=== PATIENT | male | born 1945 | race Two or more races ===

== ENCOUNTER 2016-03-15 21:32 | Inpatient (IN) | payer MEDICARE ==
[~2016-03-15] VITALS: Ht 160 cm; Wt 76.7 kg
[~2016-03-15 21:32] MED LIST: ASPIRIN-LOW81 MG ORAL; BLOOD PRESSURE PILL ORAL; CHOLESTEROL PILL ORAL; CLOTRIMAZOLE30 GM TP; FLOMAX0.4 MG ORAL; JANUMET 50-5001 EACH ORAL; LOSARTAN POTAS100 MG ORAL; METFORMIN HCL500 M1 ORAL; TRIAMTERENE-HC1 EAC6 ORAL
[2016-03-16] MEDS ORDERED: DONEPEZIL HCL5 MG (03:09)
[2016-03-16] MEDS ORDERED: DONEPEZIL HCL10 MG (03:09)
[2016-03-16] MEDS ORDERED: ALLOPURINOL100 M1 (03:09)
[2016-03-16] MEDS ORDERED: LYRICA50 MG (03:09)
[2016-03-16] MEDS ORDERED: BENAZEPRIL HCL10 MG (03:09)
[2016-03-16] MEDS ORDERED: SIMVASTATIN20 MG (03:09)
[2016-03-16] MEDS ORDERED: LABETALOL HCL100 MG (03:09)
[2016-03-16] MEDS ORDERED: JANUMET 50-5001 EACH (03:09)
[2016-03-16] MEDS ORDERED: NEXIUM40 MG (03:09)
[2016-03-16] MEDS: NovoLOG Insulin Flexpen SUBQ SCH ×2 (06:30→11:23)
[2016-03-16] MEDS ORDERED: metFORMIN 500mg tab ORAL SCH (09:00)
--- NOTE | 2016-03-16 12:06 | History and Physical ---
History of Present Illness General Date patient seen: Mar 16, 2016 Present Illness HPI 70 year old male with hx of HTN, was found unconscious in a Sauna, somebody performed CPR on him. On arrival of paramedics he was awake. He was taken to [facility], where he was initially evaluated and was found to be slightly dehydrated. He was transferred to [facility] for further evaluation. Currently he is asymptomatic and wants to leave hospital. Allergies: Coded Allergies: No Known Allergies (Verified Allergy, Unknown, 12/24/09) Medication History Scheduled Aspirin (Aspirin EC), 81 MG ORAL DAILY, (Reported) Clotrimazole (Clotrimazole), 30 GM TP PRN, (Reported) Losartan Potassium (Losartan Potassium), 100 MG ORAL DAILY, (Reported) Metformin Hcl* (Metformin Hcl*), 500 MG ORAL DAILY, (Reported) Tamsulosin HCl (Flomax), 0.4 MG ORAL DAILY, (Reported) Triamterene/Hydrochlorothiazid (Triamterene-Hctz 75-50 Mg Tab), 1 TAB ORAL DAILY , (Reported) Miscellaneous Medications Allopurinol* (Allopurinol*), (Reported) Benazepril Hcl* (Benazepril Hcl*), (Reported) Donepezil Hcl* (Donepezil Hcl*), (Reported) Donepezil Hcl* (Donepezil Hcl*), (Reported) Esomeprazole Magnesium (Nexium), (Reported) Labetalol Hcl* (Normodyne*), (Reported) Pregabalin (Lyrica), (Reported) Simvastatin (Zocor), (Reported) Sitagliptin Phos/Metformin Hcl (Janumet 50-500 Mg Tablet), (Reported) Patient History Healthcare decision maker Resuscitation status Full Code Advanced Directive on File Past Medical/Surgical History Past Medical/Surgical History: (1) Gastrointestinal stromal tumor (GIST) Review of Systems Constitutional: Reports: weakness Eye: Reports: no symptoms ENT: Reports: no symptoms Respiratory: Reports: no symptoms Cardiovascular: Reports: no symptoms Physical Exam Lines, tubes and drains: peripheral, PICC HEENT: normocephalic, atraumatic Neck: non-tender, normal alignment Respiratory/Chest: chest wall non-tender, lungs clear Breasts: no masses Cardiovascular/Chest: normal peripheral pulses Extremities: normal range of motion, non-tender Neurologic: family engagement specialist II-XII grossly normal Lymphatic: anterior cervical Last 24 Hour Vital Signs Date Time Temp Pulse Resp B/P Pulse Ox O2 Delivery O2 Flow Rate FiO2 03/16/16 09:01 64 70 71 03/16/16 04:08 63 73 92 03/16/16 04:00 61 03/16/16 01:05 63 73 92 Intake and Output 03/15/16 03/16/16 19:00 07:00 Intake Total 150 ml Output Total 500 ml Balance -350 ml Intake IV Total 150 ml Output Urine Total 500 ml # Voids 1 Height (Feet): 5 Height (Inches): 3.00 Weight (Pounds): 169 Medications Current Medications Medications (Trade) Dose Ordered Sig/Eden Route PRN Reason Start Time Stop Time Status Last Admin Dose Admin Dextrose (Dextrose 50%) STAT PRN IV Hypoglycemia 03/16/16 02:30 04/15/16 02:29 Insulin Aspart (NovoLOG) BEFORE MEALS AND HS SUBQ 03/16/16 06:30 04/15/16 06:29 Irbesartan (Avapro) 80 mg DAILY ORAL 03/16/16 09:00 04/15/16 08:59 Future Hold Metformin HCl (Glucophage) 500 mg BID ORAL 03/16/16 09:00 04/15/16 08:59 03/16/16 09:09 Sodium Chloride (Sodium Chloride 1000ml bag) 1,000 ml @ 75 mls/hr [id number] IVLG 03/16/16 03:26 04/15/16 03:25 03/16/16 04:57 Tamsulosin HCl (Flomax) 0.4 mg BEDTIME ORAL 03/16/16 21:00 04/15/16 20:59 Assessment/Plan Problem List: (1) Cardiopulmonary arrest ICD Codes: I46.9 - Cardiac arrest, cause unspecified SNOMED: 865669131 (2) Acute encephalopathy ICD Codes: G93.40 - Encephalopathy, unspecified SNOMED: 1403440 (3) Cerebrovascular accident, old ICD Codes: Z86.73 - Personal history of transient ischemic attack (TIA), and cerebral infarction without residual deficits SNOMED: 002578198 Assessment/Plan echo cardiac monitoring serial ekg, troponin neurolgy to see. JO ANN VILLASEÑOR Mar 16, 2016 12:06
[2016-03-16 13:01] LABS: BASOPHILS % (AUTO) 1.1 % (0.0-2.0); EOSINOPHILS % (AUTO) 1.3 % (0.0-3.0); LYMPHOCYTES % (AUTO) 41.8 % (20.0-45.0); MEAN CORPUSCULAR HEMOGLOBIN 31.6 PG (27.0-31.0); MEAN CORPUSCULAR HGB CONC 33.6 G/DL (32.0-36.0); MEAN CORPUSCULAR VOLUME 94 FL (80-99); MEAN PLATELET VOLUME 6.8 FL (6.5-10.1); MONOCYTES % (AUTO) 12.6 % (1.0-10.0); NEUTROPHILS % (AUTO) 43.3 % (45.0-75.0); PLATELET COUNT 103 K/UL (150-450); RED BLOOD COUNT 4.72 M/UL (4.70-6.10); RED CELL DISTRIBUTION WIDTH 10.6 % (11.6-14.8); WHITE BLOOD COUNT 3.6 K/UL (4.8-10.8)
[2016-03-16 13:24] LABS: TROPONIN I < 0.30 ng/mL (<=0.30)
[2016-03-16 13:28] LABS: ALANINE AMINOTRANSFERASE 35 U/L (3-41); ALBUMIN/GLOBULIN RATIO 1.5 (1.0-2.7); ANION GAP 13 (5-15); ASPARTATE AMINO TRANSFERASE 40 U/L (5-40); CALCIUM 8.8 mg/dL (8.6-10.2); CARBON DIOXIDE 27 mEQ/L (20-30); CHLORIDE 97 mEQ/L (98-107); HEMOLYSIS 4; SODIUM 137 mEQ/L (135-145); TOTAL PROTEIN 6.8 g/dL (6.6-8.7)
[2016-03-16] MEDS ORDERED: Tylenol #3 tab (300mg/30mg) ORAL PRN (14:00)
--- NOTE | 2016-03-16 14:07 | Neurology Progress Note ---
Objective Physical Exam Last Vital Signs Date Time Temp Pulse Resp B/P Pulse Ox O2 Delivery O2 Flow Rate FiO2 03/16/16 12:00 60 Laboratory Tests Test 03/16/16 12:35 White Blood Count 3.6 K/UL (4.8-10.8) L Red Blood Count 4.72 M/UL (4.70-6.10) Hemoglobin 14.9 G/DL (14.2-18.0) Hematocrit 44.4 % (42.0-52.0) Mean Corpuscular Volume 94 FL (80-99) Mean Corpuscular Hemoglobin 31.6 PG (27.0-31.0) H Mean Corpuscular Hemoglobin Concent 33.6 G/DL (32.0-36.0) Red Cell Distribution Width 10.6 % (11.6-14.8) L Platelet Count 103 K/UL (150-450) L Mean Platelet Volume 6.8 FL (6.5-10.1) Neutrophils (%) (Auto) 43.3 % (45.0-75.0) L Lymphocytes (%) (Auto) 41.8 % (20.0-45.0) Monocytes (%) (Auto) 12.6 % (1.0-10.0) H Eosinophils (%) (Auto) 1.3 % (0.0-3.0) Basophils (%) (Auto) 1.1 % (0.0-2.0) Sodium Level 137 mEQ/L (135-145) Potassium Level 4.0 mEQ/L (3.4-4.9) Chloride Level 97 mEQ/L (98-107) L Carbon Dioxide Level 27 mEQ/L (20-30) Anion Gap 13 (5-15) Blood Urea Nitrogen 7 mg/dL (7-23) Creatinine 1.0 mg/dL (0.7-1.2) Estimat Glomerular Filtration Rate mL/min (>60) Glucose Level 105 mg/dL (74-106) Calcium Level 8.8 mg/dL (8.6-10.2) Total Bilirubin 0.5 mg/dL (0.0-1.2) Aspartate Amino Transf (AST/SGOT) 40 U/L (5-40) Alanine Aminotransferase (ALT/SGPT) 35 U/L (3-41) Alkaline Phosphatase 70 U/L (40-129) Troponin I < 0.30 ng/mL (<=0.30) Total Protein 6.8 g/dL (6.6-8.7) Albumin 4.1 g/dL (3.5-5.2) Globulin 2.7 g/dL Albumin/Globulin Ratio 1.5 (1.0-2.7) Impression/Recommendations Recommendations #[id number] DIXIE ARCOS Mar 16, 2016 14:07
[2016-03-16] MEDS ORDERED: Neosporin Oint Ud Pkt TOPIC ONE (14:30)
--- NOTE | 2016-03-16 15:02 | History & Physical ---
History and Physical History & Physicial Jv Agarwal MD Mar 16, 2016 15:02
--- NOTE | 2016-03-16 15:31 | Cardiology Report ---
APPROVED REPORT EKG Measurement Heart [id number] Normal sinus rhythm Right bundle branch block Abnormal ECG
[2016-03-16] MEDS ORDERED: Tamsulosin 0.4mg cap ORAL SCH (21:00)
--- NOTE | 2016-03-16 21:47 | Consultation ---
DATE OF CONSULTATION: 03/16/2016 NEUROLOGICAL CONSULTATION CONSULTING PHYSICIAN: Clif Teran M.D. REQUESTING PHYSICIAN: Jv Agarwal M.D. HISTORY OF PRESENT ILLNESS: The patient is a 70-year-old gentleman seen in neurological consultation to evaluate the transient loss of consciousness. According to the patient as well as from medical records known that yesterday, he was doing fairly well although he had some signs of upper respiratory infection, coughing, and sneezing. He went to the sauna at a local [facility]. The patient indicated that he probably got "asleep" and actually become unresponsive estimated for about one hour long when someone saw him in the sauna unresponsive. He had five minutes of CPR. CPR paramedics were called to the scene at which point, he will be getting awaked. The patient was taken to [facility] emergency room, somewhat dehydrated, with his vital signs stable. He complained that he is feeling like he is getting sick with coughing, malaise, and upper respiratory infection since morning. He complained of pain in the left knee and left elbow. There was a superficial second-degree burn on the left olecranon and abrasions on the back and his chest. He was fully oriented. Stat CT of the brain was obtained. This revealed old lacunar infarct in the right basal ganglia, no acute abnormalities, no swelling, and no hemorrhage. CT of the cervical spine, degenerative joint disease and no dislocation. Chest x-ray, no acute disease. Blood work with low platelets of 108,000, sodium down to 131, but normal troponin, normal CPK and liver function. The patient stabilized and was brought to this hospital for further assessment and treatment. Laboratory work was repeated with CBC studies revealing WBC down to 3.6 and platelets 103,000. Chemistry panel was unremarkable. Following admission to present, the patient presented with multiple complaints and Neurology consult was requested. The patient is now indicating persistent severe pains in his anterior and lateral aspect of the chest and area of a scratch. There is also pain in his upper back, pain increasing with any cough or strain, and persistent pain in his left upper extremity, lower back region, and upper back pain. PAST MEDICAL HISTORY: History of gout arthritis, hypertension, diabetes type 2, benign prostatic hypertrophy, and status post lumbar laminectomies. MEDICATIONS: Treatment prior to admission included allopurinol, aspirin, benazepril, donepezil, labetalol, losartan, metformin, Lyrica, simvastatin, Janumet, Flomax, and triamterene. ALLERGIES: None reported. SOCIAL HISTORY: Denies alcohol or drug abuse. Nonsmoker. FAMILY HISTORY: Noncontributory. REVIEW OF SYMPTOMS: Denies headache ot dizziness, but has persistent pain and discomfort in his chest, upper back, dorsal spine, and left arm. The patient indicated that the longer he is in the hospital, worse he feels. No urine or bowel incontinence. PHYSICAL EXAMINATION: GENERAL: A well-developed, well-nourished man, not in acute distress, found to be lying in bed, watching TV. VITAL SIGNS: Now stable. Blood pressure 105/86 and respiration 18. HEENT: Head, normocephalic. No evidence of trauma. Eyes, ears, and throat are clear. NECK: Supple. CHEST: There is an acute palpable tenderness in the sternal and right chest area. SKIN: Scratched area noted. There is a small burn lesion in the left elbow, olecranon area. There is redness and significant tenderness on palpation in the left periscapular region. No deformities. MUSCULOSKELETAL: Peripheral pulses, 1+ symmetric. MENTAL STATUS: Alert and oriented x3. Speech is fluent. Language is intact. The patient is anxious, tensed, and asking to be discharged home. CRANIAL NERVE II: Pupils both responding to light and accommodation. Extraocular movement intact. No nystagmus. CRANIAL NERVE V: Normal corneal responses. CRANIAL NERVE VII: No facial asymmetry. CRANIAL NERVE VIII: Normal hearing. CRANIAL NERVES IX THROUGH XII: Tongue is in midline. Symmetric palate elevation. MOTOR EXAMINATION: Motor examination, normal muscle tone. Strength 5/5 in all extremities. No involuntary movement. Deep tendon reflexes, 1+ symmetric with downgoing toes on both sides. SENSORY EXAM: Normal in all modalities. GAIT: Not tested, but able to ambulate slowly due to low back pain. IMPRESSION: 1. History of syncopal episode, most likely vasovagal secondary to dehydration in an overheated sauna. 2. Generalized myalgia secondary to transient hyperthermia. 3. Chronic low back pain, status post laminectomy. 4. Hypertension. 5. Hyperlipidemia. 6. Diabetes type 2. RECOMMENDATIONS: 1. Cold packs to the painful areas. 2. Tylenol 650 mg t.i.d. for pain management. 3. Avoid strenuous physical exertion. 4. Bedrest. 5. Rehydration. 6. Recheck orthostatic blood pressure. Thank you for allowing me to see this interesting patient in neurological consultation. Clif Astrid Teran DR: CHEMA JOB#: [id number] CC:
--- NOTE | 2016-03-16 22:27 | History and Physical Report ---
DATE OF ADMISSION: 03/16/2016 CHIEF COMPLAINT: Syncopal episode. HISTORY OF PRESENT ILLNESS: This is a 70-year-old Pakistani gentleman with past medical history significant for hypertension, dyslipidemia, history of spine surgery in the past lumbar spine, history of gout, and diabetes type 2 who presented to the hospital initially at [facility] after had a syncopal episode. While he was was found down for 20 to 30 minute and somebody at the senior started performing CPR. About 5 minute of CPR although patient was responsive per EMS the patient reported that he has been having URI, cough, and malaise since that morning and feel like he is getting sick. He does not recall the events and denies any associated palpitation, chest pain, shortness of breath, or fever. Shortly after initial evaluation in [facility], the patient was noted to have severe profound weakness and subsequently the patient was transferred to [facility] for further evaluation and workup including cardiac workup . PAST MEDICAL HISTORY AND PAST SURGICAL HISTORY: As above history of hypertension, gout, diabetes type 2, dyslipidemia, lumbar spine surgery. MEDICATIONS: At home significant for metformin, Flomax, allopurinol, aspirin, benazepril, clotrimazole, Aricept, Nexium, labetalol, losartan, Lyrica, Zocor, Janumet, triamterene-hydrochlorothiazide. ALLERGIES: No known drug allergies. SOCIAL HISTORY: No smoking, alcohol, or drugs at this time. FAMILY HISTORY: Noncontributory. REVIEW OF SYSTEMS: Mostly as above. Denies any dysuria, frequency, hematuria. He said that he is not feeling good. Denies any hemoptysis or hematochezia. Complained about cough and fatigue. Denies any double vision. Denies any suicidal or homicidal ideation. Denies any loss of consciousness before this event. PHYSICAL EXAMINATION: VITAL SIGNS: On arrival to [facility] significant for temperature 99.2, pulse of 79, respirations 19, blood pressure 138/75, repeat one is 141/87. GENERAL: The patient awake, responsive, no acute distress. HEENT: Head And Neck: Pupils are reactive to light. Extraocular movements are intact. NECK: Supple. No JVD. LUNGS: Good air entry. No wheezes or rales. HEART: S1 and S2. Regular rhythm. No murmurs or gallops. ABDOMEN: Soft, nondistended, and nontender. Positive bowel sounds. RECTAL: Refused and deferred. GENITOURINARY: Refused and deferred. EXTREMITIES: No cyanosis, clubbing, or edema. NEUROLOGIC: Cranial nerves II through XII are grossly intact. Moves all four extremities. Gait is unsteady and mild loss of balance; however, he is still using the wall for ambulation. SKIN: Second-degree burn in the chest wall as well as back was noted. LABORATORY AND DIAGNOSTIC DATA,: From [facility], CT of the cervical spine, no contrast, there is no fracture, degenerative changes are seen including interventricular disk space. The patient had a CT of the brain which shows that old lacunar infarction are seen in the right thalamic as well as right putamen. There is no intracranial bleed or acute infarction. Laboratory, noted the patient has WBC of 4.7, hemoglobin of 15 with a hematocrit of 44, and platelet 108,000. Sodium 131, potassium 4.2, chloride 97, bicarbonate 27, BUN is 8, creatinine is 1.09. INR is 1.0. Glucose 143. BNP of 22. CK of 264. Lipase is 29. Calcium is 9.3. EKG sinus with wide complex QRS, right bundle-branch block, no ischemia was noted. Chest x-ray, no infiltrate, as per the ER and the patient was noted to have lymph node percentage of 0.71. ASSESSMENT: 1. Syncope possible orthostatics versus cardiac arrhythmia. 2. Dehydration. 3. Diabetes type 2. 4. Dyslipidemia. 5. History of gout. 6. History of hypertension. PLAN: Admit the patient to telemetry. We will follow up with Dr. Rodriguez from Critical Care and Dr. Clif Teran from Neurology and Dr. Swapnil Zamorano from Cardiology. The patient had echocardiogram ordered and was done but the result is still pending and at this time his Accu-Chek was refusing to stay in the hospital. I explained to the patient the risk and benefit of staying in the hospital at least one more day for further evaluation and monitoring closely and IV hydration. He adamantly refused. As his mental status cable of making judgments and he knows what he is doing according to him and discussed with the patient that there is the possibility of further falling such as striking the head and intracranial bleed or possible and he understood that and he said that I will take my risk. He is signing AMA against medical advice from hospital. Jv Agarwal M.D. DR: Grace JOB#: [id number] CC:
--- NOTE | 2016-03-17 10:03 | Cardiology Report ---
APPROVED REPORT EXAM: Two-dimensional and M-mode echocardiogram with Doppler and color Doppler. INDICATION Syncope M-Mode DIMENSIONS IVSd1.1 (0.7-1.1cm)Left Atrium (MM)4.0 (1.6-4.0cm) LVDd3.1 (3.5-5.6cm)Aortic Root3.0 (2.0-3.7cm) PWd1.3 (0.7-1.1cm)Aortic Cusp Exc.1.7 (1.5-2.0cm) LVDs1.7 (2.5-4.0cm) PWs1.6 cm Normal left ventricular chamber size, systolic function and wall motion. Left ventricular ejection fraction estimated to be 65-70%. No evidence of ventricular hypertrophy. Anterior Echo-free space, may be due to pericardial fat or effusion. No evidence of pericardial effusion. All other cardiac chamber sizes are within normal limits. Mild focal aortic valve sclerosis with adequate cusp excursion. Mildly thickened mitral valve leaflets with normal excursion. Mild mitral annulus and aortic root calcification. Pulmonic valve not well visualized. Normal tricuspid valve structure. IVC dilated at 1.9cm with physiologic collapse. A color flow and spectral Doppler study was performed and revealed: Trace aortic regurgitation. Trace mitral regurgitation. Mitral diastolic velocities suggest reduced left ventricular relaxation (Grade I). Trace tricuspid regurgitation. Tricuspid systolic velocities suggests peak right ventricular systolic pressure of 15 mmHg. No pulmonic regurgitation present.
--- NOTE | 2016-03-17 15:13 | Discharge Summary ---
Discharge Summary Hospital Course Date of Admission Mar 16, 2016 at 00:39 Date of Discharge Mar 16, 2016 at 15:30 Admitting Diagnosis HPI Slick Cardenas is a 70 year old male who was admitted on Mar 16, 2016 at 00: 39 for Syncope Hospital Course [id number] Discharge Discharge Disposition Patient left AMA Discharge Diagnoses: Norah Brooks NP Mar 17, 2016 15:13
--- NOTE | 2016-03-18 02:58 | Discharge Summary 2 SIG ---
DATE OF ADMISSION: 03/16/2016 DATE OF DISCHARGE: 03/16/2016 CONSULTANTS: 1. Buster Rodriguez M.D. 2. Clif Teran M.D. BRIEF HOSPITAL COURSE: The patient is a 70-year-old male with past medical history of hypertension, dyslipidemia, history of lumbar spine surgery in the past, history of gout, and diabetes. He presented to the hospital initially at [facility] after syncopal episode. He was found down on the floor and somebody at the [facility] started performing CPR. Paramedics came. The patient was responsive per EMS report and the patient claims that he has been having upper respiratory symptoms with cough since the morning and felt like he was getting sick. He does not recall the events. He denies any associated palpitations, chest pain, shortness of breath, or fever. The patient was transferred to [facility] for further evaluation and cardiac workup. A CT of the cervical spine with no contrast showed no fracture or degenerative changes seen. He also had a CT of the brain that showed old lacunar infarct in the right thalamus as well as Chest x-ray showed no infiltrate. EKG showed wide complex QRS, and right bundle-branch block. No ischemia was noted. He was admitted to telemetry and was started on IV hydration. He was seen by Dr. Teran and Dr. Rodriguez. However, full treatment was not carried out as the patient signed out against medical advice. FINAL DIAGNOSES: 1. Syncope, possible orthostatic with cardiac arrhythmia. 2. Dehydration. 3. Diabetes mellitus type 2. 4. Dyslipidemia. 5. Gout. 6. Hypertension. 7. Chronic low back pain, status post laminectomy. 8. Hyperlipidemia. 9. Generalized myalgia secondary to transient hyperthermia. 10. Old cerebrovascular accident. 11. Noncompliance as the patient signed out against medical advice. Jv Agarwal M.D. I have been assigned to dictate discharge summary on this account and I was not involved in the patient's management. Norah Brooks N.P. DR: ARTUR JOB#: [id number] CC: KARINA
== END 2016-03-16 15:30 | disposition left against medical advice (07) | DRG 640 ==
LOC: 2E 03-16 00:39
DX: E86.0 Dehydration (principal); G93.40 Encephalopathy, unspecified; E11.9 Type 2 diabetes mellitus without complications; R50.9 Fever, unspecified; I10 Essential (primary) hypertension; Z86.73 Personal history of transient ischemic attack (TIA), and cerebral infarction without residual deficits; N40.0 Benign prostatic hyperplasia without lower urinary tract symptoms; E78.5 Hyperlipidemia, unspecified; M10.9 Gout, unspecified; Z91.19 Patient's noncompliance with other medical treatment and regimen
CPT/HCPCS: 36415; 80053; 82962; 84484; 85025; 93005; 93306; J1815

== ENCOUNTER 2017-04-23 14:38 | Outpatient (CLI) | payer MEDICARE, OTHER ==
[~2017-04-23 14:38] MED LIST changes: +ALLOPURINOL100 M1; +BENAZEPRIL HCL10 MG; +DONEPEZIL HCL10 MG; +DONEPEZIL HCL5 MG; +JANUMET 50-5001 EACH; +LABETALOL HCL100 MG; +LYRICA50 MG; +NEXIUM40 MG; +SIMVASTATIN20 MG
--- NOTE | 2017-04-23 15:33 | GI Progress Note ---
Assessment/Plan Problems: (1) Gastrointestinal stromal tumor (GIST) ICD Codes: D48.1 - Gastrointestinal stromal tumor (GIST) SNOMED: 880661516 (2) Submucosal lesion in duodenum (3) Antral erosion ICD Codes: K25.9 - Antral erosion SNOMED: 718505077 Status: stable Status Narrative Seen with Dr. Dias. Assessment/Plan EGD/EUS with FNA SUMMARY OF FINDINGS 2015: 1. Multiple antral erosions. 2. Gastritis, status post biopsy. 3. A 4.8 cm second portion of duodenum submucosal lesion suspicious for GIST, status post failed FNA with a 19-gauge needle. 4. Possible chronic pancreatitis. 5. One colonic polyp removed, see above for details. 6. Internal hemorrhoids. RECOMMENDATIONS: d/w patient at length POC no need for surgery at this this time RTC x 6 months Subjective Gastrointestinal/Abdominal: Reports: no symptoms Objective General Appearance: WD/WN, no apparent distress, alert Cardiovascular: normal rate Respiratory/Chest: normal breath sounds, no respiratory distress Abdominal Exam: normal bowel sounds, non tender, soft Extremities: normal range of motion, non-tender Disha Ruiz N.P. Apr 23, 2017 15:33
== END 2017-04-23 15:10 | disposition home or self-care (01) ==
LOC: PAN 14:38
DX: D48.1 Neoplasm of uncertain behavior of connective and other soft tissue (principal); K25.9 Gastric ulcer, unspecified as acute or chronic, without hemorrhage or perforation; K29.70 Gastritis, unspecified, without bleeding; K63.5 Polyp of colon; K64.8 Other hemorrhoids
CPT/HCPCS: 99212

== ENCOUNTER 2020-02-10 11:45 | Outpatient (CLI) | payer MEDICARE, OTHER | END 2020-02-10 13:45 | disposition home or self-care (01) | LOC: PAN 11:45 | DX: R10.9 Unspecified abdominal pain (principal) | CPT/HCPCS: 99212 ==